=== PATIENT | female | born 1990 | race Caucasian/White ===

== ENCOUNTER 2024-05-04 10:35 | Outpatient (CLI) | payer OTHER, SELFPAY ==
[2024-05-04 18:24] LABS: Hematocrit 47.7 % (37.0-47.0); Hemoglobin 14.9 g/dL (12.0-15.0); Mean Corpuscular HGB Conc 31.2 g/dl (32-36); Mean Corpuscular Hemoglobin 29.2 pg (26-34); Mean Corpuscular Volume 93.3 fl (80-100); Mean Platelet Volume 10.7 fl (7.4-10.4); Platelet Count Result 278 k/mm3 (150-375); Red Blood Count 5.11 M/mm3 (4.2-5.4); White Blood Count 8.6 K/mm3 (4.5-10.0)
[2024-05-04 18:38] LABS: Alanine Aminotransferase 14 U/L (6-35); Albumin Level 4.7 g/dL (3.5-5.1); Alkaline Phosphatase 80 U/L (38-126); Anion Gap 3 mmol/L (4-12); Aspartate Amino Transferase 53 U/L (14-36); Bilirubin,Total 0.6 mg/dL (0.2-1.3); Blood Urea Nitrogen 18 mg/dL (7-17); Calcium 9.3 mg/dL (8.4-10.2); Carbon Dioxide 29 mmol/L (22-30); Chloride 105 mmol/L (98-107); Cholesterol 164 mg/dL (0-200); Estimated Glomerular Filt Rate > 60; Glucose 87 mg/dL (65-110); HDL Direct 63 mg/dL; Potassium 3.9 mmol/L (3.4-5.0); Sodium 137 mmol/L (137-145); Triglycerides 70 mg/dL (<150)
[2024-05-04 18:47] LABS: Free T4 Free Thyroxine 1.11 ng/dL (0.78-2.19); Vitamin D 25 Hydroxy 22.4 ng/mL
[2024-05-04 18:49] LABS: LDL Cholesterol Direct 66 mg/dL
[2024-05-04 19:09] LABS: Thyroid Stimulating Hormone 0.073 uIU/mL (0.465-4.680)
[2024-05-04 19:45] LABS: Folic Acid 10.8 ng/mL (2.76->20)
[2024-05-04 20:19] LABS: Hemoglobin A1C 5.4 % (<5.7)
== END 2024-05-04 10:36 | disposition home or self-care (01) ==
LOC: ANHBWCLAB 10:37
PROVIDERS: PCP Nurse Practitioner Adult Health; Visit Provider Nurse Practitioner Adult Health
DX: R53.83 Other fatigue (principal); R63.5 Abnormal weight gain; Z01.83 Encounter for blood typing; Z13.9 Encounter for screening, unspecified
CPT/HCPCS: 36415; 80053; 80061; 82306; 82607; 82746; 83036; 84439; 84443; 85027; 86900; 86901

== ENCOUNTER 2024-05-12 12:30 | Outpatient (CLI) | payer OTHER, SELFPAY ==
[2024-05-14 04:28] LABS: T3 Free 3.8 pg/mL (2.3-4.2)
[2024-05-14 08:58] LABS: Thyroid Peroxidase Antibodies <1 IU/mL (<9)
== END 2024-05-12 12:31 | disposition home or self-care (01) ==
LOC: ANHBWCLAB 12:32
PROVIDERS: PCP Nurse Practitioner Adult Health; Visit Provider Nurse Practitioner Adult Health
DX: R79.89 Other specified abnormal findings of blood chemistry (principal)
CPT/HCPCS: 36415; 84480; 86376

== ENCOUNTER 2025-04-05 10:35 | Outpatient (CLI) | payer BC, SELFPAY ==
--- OUTSIDE RECORDS SUMMARY | 2025-04-05 11:33 | XMS_ITS | Clinical Summary ---
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 Name Role Phone Isabel Weems NP Primary Care Provider [phone] Allergies Active Allergy Reactions Criticality Noted Date Comments Amoxicillin Amoxicillin-Pot Clavulanate Cefaclor Hives Reaction: Hives, , Penicillins Hives,Itching Low 03/24/2022 Reaction: Hives, , Medications naproxen (NAPROSYN) 500 mg tablet Take 1 tablet (500 mg total) by mouth 2 (two) times a day with meals Collaborating physician Robin Ellis MD 20 tablet 3 Active Additional Information Patient not taking.Reported on 01/11/2025 cholecalcifero l (VITAMIN D-3) 50,000 unit capsule Take by mouth once a week 5 Active Active Problems Problem Noted Date Diagnosed Date Contusion of left foot 06/25/2022 Foot sprain, left, initial encounter 06/25/2022 No pathologic diagnosis 03/04/2012 Overview (08/09/2016): No diagnosis Encounters Date Type Department Care Team Description 01/11/2025 10:50 AM CDT Office Visit [facility] [address] [place] [address] Debby Blackmon MD Encounter for gynecological examination without abnormal finding (Primary Dx); Dysmenorrhea from Last 3 Months Immunizations Immunization Administration Dates Next Due Tdap 05/27/2018 Surgical History Surgery Date Site/Laterality Comments TYMPANOSTOMY TUBE PLACEMENT tubes in ears SECTION 05/05/2015 - 05/04/2016 TONSILLECTOMY/ADENOIDECTOMY TUBAL LIGATION 05/05/2017 - 05/04/2018 ENDOMETRIAL ABLATION 05/05/2017 - 05/04/2018 with tubal ligation Medical History Medical History Date Comments Preeclampsia 2016 Family History Medical History Relation Name Comments Colon cancer Father Hypertension Mother Ovarian cancer Mother's Sister not geneti c Asthma Sister Relation Name Status Comments Father Mother Mother's Sister Sister Social History Tobacco Use Types Packs/Day Years Used Date Smoking Tobacco: Never Smokeless Tobacco: Never Alcohol Use Standard Drinks/Week Comments Yes 0 (1 standard drink = 0.6 oz pur e alcohol) Occasionally Comments No Sex and Gender Information Value Date Recorded Sex Assigned at Not on file Legal Sex Female 2:09 AM DIETIST Gender Identity Not on file Sexual Orientation Not on file Occupation Industry Job Start Date Job End Date Not on file Not on file Not on file Not on file Obstetrics History Para Term AB IAB SAB Ectopic Multiple Livin g Live Births 3 3 2 1 3 3 Date Outcome GA Total Labor Labor/2nd/3rd Weight Sex Type Anes PTL Tootie A1 A5 Name Clin 2011 Term 39w 0d 2.892 kg (6 lb 6 oz) F Vag-S pont Living 2015 34w 0d 2.381 kg (5 lb 4 oz) F CS-LT ranv Living Complications: Karyn carlos Hypertension 2017 Term 39w 6d 3.487 kg (7 lb 11 oz) M Living Last Filed Vital Signs Vital Sign Reading Time Taken Comments Blood Pressure 130/82 01/11/2025 10:59 AM CDT Pulse 91 09/19/2022 1:11 PM CDT Temperature 36.6 C (97.8 F) 06/25/2022 4:44 PM DIETIST Respiratory Rate 17 06/25/2022 4:44 PM DIETIST Oxygen Saturation 100% 06/25/2022 4:44 PM DIETIST Inhaled Oxygen Concentration - - Weight 57.6 kg (127 lb) 01/11/2025 10:59 AM CDT Height 151.1 cm (4' 11.5) 01/11/2025 10:59 AM C DT Body Mass Index 25.22 01/11/2025 10:59 AM CDT Plan of Treatment Health Maintenance Due Date Last Done Comments Depression Screening 1991 HPV Vaccines (1 - 3-dose SCDM series) 10/24/2018 Cervical Cancer Screening 12/23/20242023, 12/24/2023, 07/07/2020, Additional history exists Influenza Vaccine (#1) 2025 05/12/2018 Regular Well Visit/Exam 18-64 01/11/2026 01/11/2025, 12/24/2023, 07/07/2020 DTaP/Tdap/Td Vaccine (7 - Td or Tdap) 05/27/2028 05/27/2018, 12/09/2005, 12/11/1996, Additional history exists Hepatitis B Screening Completed 12/24/1995 , 06/11/1995, 04/02/1995 Varicella Vaccines Completed 05/08/2017, 12/08/2001 Hepatitis C Screening Completed 04/12/2021 Pneumococcal vaccine <65 Aged Out No longer eligible based on patient's age to complete this topic Procedures Procedure Name Priority Date/Time Associated Diagnosis Comments HIGH RISK HPV DNA DETECTION WITH GENOTYPING Routine 12/24/2023 11:39 AM CDT Screening for malignant neoplasm of the cervix HEPATITIS C ANTIBODY Routine 04/12/2021 8:15 AM DIETIST from Last 3 Months or Most Recently Relevant to Health Maintenance Results * High Risk HPV DNA Detection with Genotyping (Molecular component) (12/24/2023 11:39 AM CDT) HPV HR 16 Not Detected Not Detected [facility] Comment:Testing performed by : [facility], [address] [place] [address] HPV HR 18 Not Detected Not Detected [facility] Comment:Testing performed by : [facility], [address] [facility], [place]., [address] HPV HR Non 16/18 Not Detected Not Detected [facility] Comment: Interpretive Data Nucleic acid amplification for detection of high-risk Human Papilloma virus (HPV) is performed by the Sheryl Georgiana 6800 HPV test. This assay specifically detects HPV-16 and HPV-18 genotypes. The following HPV genotypes are detected as high-risk HPV: HPV-31, 33, 35, ,39, 45, 51, 52, 56, 58, 59, 66, and 68. This assay has been approved by the [place] Food and Drug Administration for detection of HPV in cervical specimens collected by a physician using an endocervical brush/spatula or cervical broom and placed in the ThinPrep Pap Test PreservCyt collection containers. The performance characteristics of this test have been verified by the [facility] Molecular Infectious Disease laboratory. Correlate with separately reported cytology results, as applicable. Interpretive data last revised 22 Testing performed by: [facility], [address] [place]., [address] Endocervical 12/24/2023 11:3 9 AM CDT 12/25/2023 10:48 AM CDT Narrative [facility] - 12/25/2023 8:05 PM CDT Clinical history and diagnosis->DX Z12.4 2020- ANIYA I Testing type->Screening Last menstrual period (date if known)->12/04/23 Previous negative PAP?->Yes Debby Blackmon MD LAB BODY FLUIDS AND S TOOLS ORDERABLES Final Result Performing Organization Address City/[facility] de Phone Number [facility] [address] Department [place] [address] [facility] * Hepatitis C antibody (04/12/2021 8:15 AM DIETIST) Hep C Ab Nonreactive Nonreactive [facility] Comment:Antibodies to HCV no t detected. Does NOT exclude the possibility of recent exposure to HCV. Blood 04/12/2021 8:15 AM DIETIST 04/12/2021 5:09 PM DIETIST Claudio Marino MD LAB MICROBIOLOGY - GENERAL ORDERABLES Edited Result - Final [facility] Department [place] [address] from Last 3 Months or Most Recently Relevant to Health [place] [address] [place] [address] [employer] [facility] CHOICE [facility] HMO/PPO Address: [address] [address] [place] [address] [facility] WORK[employer] COMP[employer] GENERIC [employer] [place] [address] [place] [address] [employer]ATION GENERIC Care Teams 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
[2025-04-05 19:25] LABS: Alanine Aminotransferase 14 U/L (6-35); Albumin Level 4.7 g/dL (3.5-5.1); Alkaline Phosphatase 68 U/L (38-126); Anion Gap 6 mmol/L (4-12); Aspartate Amino Transferase 53 U/L (14-36); Bilirubin,Total 0.9 mg/dL (0.2-1.3); Blood Urea Nitrogen 16 mg/dL (7-17); Calcium 9.2 mg/dL (8.4-10.2); Carbon Dioxide 29 mmol/L (22-30); Chloride 105 mmol/L (98-107); Estimated Glomerular Filt Rate > 60; Glucose 94 mg/dL (65-110); Potassium 3.9 mmol/L (3.4-5.0); Sodium 140 mmol/L (137-145); Total Protein 7.7 g/dL (6.3-8.2)
[2025-04-05 20:02] LABS: Thyroid Stimulating Hormone 1.280 uIU/mL (0.465-4.680)
[2025-04-05 20:08] LABS: Free T4 Free Thyroxine 0.95 ng/dL (0.78-2.19)
== END 2025-04-05 10:36 | disposition home or self-care (01) ==
LOC: ANHBWCLAB 10:37
PROVIDERS: PCP Nurse Practitioner Adult Health; Visit Provider Nurse Practitioner Adult Health
DX: Z00.00 Encounter for general adult medical examination without abnormal findings (principal); R79.89 Other specified abnormal findings of blood chemistry; E55.9 Vitamin D deficiency, unspecified
CPT/HCPCS: 36415; 80053; 82306; 84439; 84443